=== PATIENT | female | born 1960 | race African-American/Black ===

== ENCOUNTER 2020-12-25 13:19 | Observation (INO) | payer MEDICARE ==
[~2020-12-25] VITALS: Ht 160 cm; Wt 61.7 kg
[2020-12-25] VITALS (7 sets, daily range): BP systolic 92–111; BP diastolic 54–66
[2020-12-25 14:24] LABS: BASOPHILS # (AUTO) 0.1 (0.0-0.1); BASOPHILS % 0.6 % (0.0-1.0); LYMPHOCYTES # (AUTO) 2.4 (1.0-3.2); LYMPHOCYTES % 29.9 % (18.0-39.1); MEAN CORPUSCULAR HGB CONC 33.3 g/dL (31-35); MONOCYTES # (AUTO) 1.6 (0.2-0.8); MONOCYTES % 19.7 % (4.4-11.3); NEUTROPHILS # (AUTO) 3.9 (2.1-6.9); NEUTROPHILS % 47.8 % (38.7-80.0); RED CELL DISTRIBUTION WIDTH 15.5 % (11.7-14.4)
[2020-12-25 14:28] LABS: HEMATOCRIT 17.4 % (34.2-44.1); HEMOGLOBIN 5.8 g/dL (12.0-16.0); PLATELET COUNT 31 x10e3/uL (140-360)
[2020-12-25] MEDS ORDERED: SODIUM CHLORIDE FLUSH 10 ML SYR INJ PRN (15:00)
[2020-12-25] MEDS ORDERED: MORPHINE SULFATE INJ 2 MG/ML SYR IV PRN (18:30)
[2020-12-25] MEDS ORDERED: ONDANSETRON HCL INJ 2MG/ML 2ML 2 MG/ML VIAL IV PRN (18:45)
[2020-12-25] MEDS ORDERED: HYDRALAZINE HCL 20 MG/ML VIAL IV PRN (18:45)
[2020-12-25] MEDS ORDERED: ACETAMINOPHEN 325 MG TAB PO PRN (18:45)
[2020-12-25 18:53] LABS: INR 1.1; PROTHROMBIN TIME 14.9 seconds (11.9-14.5)
[2020-12-25] MEDS: SODIUM CHLORIDE 0.9% 1000ML 1,000 ML IV SCH (18:56)
[2020-12-25 19:00] LABS: ANION GAP 18.3 mmol/L (8-16); CALCIUM 8.8 mg/dL (8.4-10.2); CREATININE, SERUM 1.77 mg/dL (0.57-1.11); POTASSIUM 5.3 mmol/L (3.5-5.1)
[2020-12-25] MEDS ORDERED: METOPROLOL TART50 MG PO (20:00)
[2020-12-25] MEDS ORDERED: PROPRANOLOL HCL80 MG PO (20:00)
[2020-12-25] MEDS ORDERED: FOLIC ACID0.4 MG PO (20:00)
[2020-12-25] MEDS ORDERED: LISINOPRIL10 MG PO (20:00)
[2020-12-25] MEDS ORDERED: HYDROCODON-ACE1 EAC9 (20:00)
[2020-12-25] MEDS ORDERED: ATIVAN1 MG PO (20:00)
[2020-12-25] MEDS ORDERED: PROPRANOLOL HCL 80 MG CAPCR PO PRN (20:30)
[2020-12-25] MEDS ORDERED: LORAZEPAM 1 MG TAB ONE (20:34)
[2020-12-25] MEDS: LORAZEPAM 1 MG TAB PO PRN (20:38)
[2020-12-25] MEDS ORDERED: MELATONIN 5 MG TABLET PO PRN (21:00)
[2020-12-25] MEDS: METOPROLOL TARTRATE 50 MG TAB PO SCH (23:43)
[2020-12-26] VITALS (12 sets, daily range): BP systolic 91–118; BP diastolic 52–70
[2020-12-26] MEDS: HYDROCODONE/APAP 10MG-325MG TAB PO PRN ×2 (03:25→16:41)
[2020-12-26] MEDS: SODIUM CHLORIDE 0.9% 1000ML 1,000 ML IV SCH ×2 (04:27→17:40)
[2020-12-26] MEDS: METOPROLOL TARTRATE 50 MG TAB PO SCH ×3 (06:00→17:05)
[2020-12-26] MEDS ORDERED: SODIUM CHLORIDE 0.9% 250ML 250 ML ONE (07:32)
[2020-12-26] MEDS: FAMOTIDINE 20 MG TAB PO SCH ×2 (08:05→16:40)
[2020-12-26] MEDS ORDERED: HYDREA500 MG PO (08:58)
[2020-12-26] MEDS ORDERED: FOLIC ACID 1 MG TAB PO SCH (09:00)
[2020-12-26] MEDS ORDERED: LISINOPRIL 10 MG TAB PO SCH (09:00)
[2020-12-26] MEDS: LORAZEPAM 1 MG TAB PO PRN (10:00)
[2020-12-26 10:24] LABS: BASOPHILS # (AUTO) 0.1 (0.0-0.1); BASOPHILS % 1.1 % (0.0-1.0); HEMATOCRIT 26.1 % (34.2-44.1); HEMOGLOBIN 8.8 g/dL (12.0-16.0); LYMPHOCYTES % 27.9 % (18.0-39.1); MEAN CORPUSCULAR HEMOGLOBIN 28.8 pg (28-32); MEAN CORPUSCULAR HGB CONC 33.7 g/dL (31-35); MEAN CORPUSCULAR VOLUME 85.3 fL (81-99); MONOCYTES # (AUTO) 1.6 (0.2-0.8); NEUTROPHILS # (AUTO) 3.1 (2.1-6.9); NEUTROPHILS % 44.7 % (38.7-80.0); RED BLOOD COUNT 3.06 x10e6/uL (3.6-5.1)
[2020-12-26 10:37] LABS: ALANINE AMINOTRANSFERASE 37 IU/L (0-55); ALBUMIN 3.3 g/dL (3.5-5.0); ALBUMIN/GLOBULIN RATIO 0.9 (0.8-2.0); ALKALINE PHOSPHATASE 130 IU/L (40-150); ANION GAP 10.2 mmol/L (8-16); BLOOD UREA NITROGEN 28 mg/dL (7-26); BUN/CREATININE RATIO 29 (6-25); CALCIUM 8.4 mg/dL (8.4-10.2); CARBON DIOXIDE 21 mmol/L (22-29); CHLORIDE 109 mmol/L (98-107); CREATININE, SERUM 0.95 mg/dL (0.57-1.11); EST GLOMERULAR FILTRATION RATE > 60 ML/MIN (60-); GLUCOSE 130 mg/dL (74-118); PLATELET COUNT 24 x10e3/uL (140-360); POTASSIUM 4.2 mmol/L (3.5-5.1); SODIUM 136 mmol/L (136-145)
[2020-12-26] MEDS ORDERED: ENOXAPARIN SOD INJ 40 MG/0.4 ML SYR SC SCH (17:00)
== END 2020-12-26 18:33 | disposition home or self-care (01) ==
LOC: FSED 13:39 → INTOOBSV 15:06 → ERHOLD 15:06 → ICU 17:55 → MED/SURG 12-26 05:45
PROVIDERS: ADMIT Internal Medicine; ATTEND Internal Medicine
DX: D62 Acute posthemorrhagic anemia (principal); E87.2 Acidosis; D57.1 Sickle-cell disease without crisis; N18.30 Chronic kidney disease, stage 3 unspecified; K76.9 Liver disease, unspecified; D69.59 Other secondary thrombocytopenia; I12.9 Hypertensive chronic kidney disease with stage 1 through stage 4 chronic kidney disease, or unspecified chronic kidney disease; Z20.822 Contact with and (suspected) exposure to COVID-19
CPT/HCPCS: 36415 ×2; 36569; 71045; 80048; 80053 ×2; 85025 ×2; 85045; 85610; 86850; 86900; 86920; 99284; G0378 ×2; J7030 ×2; J7050; P9016; U0002